=== PATIENT | female | born 1950 | race Caucasian/White ===

== ENCOUNTER 2016-04-26 11:05 | Inpatient (IN) | payer MEDICARE, OTHER ==
[~2016-04-26] VITALS: Ht 162.6 cm; Wt 56.0 kg
[2016-04-26] MEDS ORDERED: SODIUM CHLORIDE FLUSH 10 ML SYR IV PRN (12:50)
[2016-04-26] MEDS ORDERED: SODIUM CHLORIDE FLUSH 3 ML SYR IV PRN (12:50)
[2016-04-26] MEDS ORDERED: ALBUTEROL/IPRATROPIUM 3MG-0.5MG/3ML (DUONEB) NEB VIAL INH ONE ×2 (12:50→20:11)
[2016-04-26] MEDS ORDERED: ACETAMINOPHEN 500 MG TAB (TYLENOL) PO STA (13:09)
[2016-04-26 13:21] LABS: MEAN CORPUSCULAR HEMOGLOBIN 30.1 PG (26.0-34.0); MEAN CORPUSCULAR VOLUME 85 FL (80-100); MEAN PLATELET VOLUME 9.6 FL (6.0-9.5); PLATELET COUNT 270 10^3uL (150-450); WHITE BLOOD COUNT 13.57 10^3uL (4.0-11.0)
[2016-04-26 13:23] LABS: MEAN CORPUSCULAR HGB CONC 35.5 g/dL (31.0-37.0)
[2016-04-26 13:30] LABS: BAND NEUTROPHILS % 13 % (0-6); EOSINOPHILS % 0 % (0-4); LYMPHOCYTES # 1.5 #; MONOCYTES # 0.8 #; MONOCYTES % 6 % (3-11); RBC MORPH NORMAL (NORMAL); SEGMENTED NEUTROPHILS % 70 % (51-67); TOTAL CELLS COUNTED 100
[2016-04-26 13:34] LABS: ANION GAP 15.4 MEQ/L (3-15); CALCULATED IONIZED CALCIUM 3.8 mg/dL (3.8-4.6)
[2016-04-26] MEDS ORDERED: methylPREDNISolone 125 MG (Solu-MEDROL) VIAL IV STA (14:26)
[2016-04-26] MEDS ORDERED: ALBUTEROL 0.083% NEB SOLUTION 2.5 MG/3 ML VIAL INH STA (14:26)
[2016-04-26] MEDS: SODIUM CHLORIDE FLUSH 10 ML SYR IV PRN (15:32)
[2016-04-26 15:52] LABS: INFLUENZA VIRUS TYPE A ANTIBOD Negative (NEGATIVE); INFLUENZA VIRUS TYPE B ANTIBOD Negative (NEGATIVE)
[2016-04-26] MEDS ORDERED: ACETAMINOPHEN 325 MG TAB (TYLENOL) PO PRN (17:30)
[2016-04-26] MEDS ORDERED: ONDANSETRON 4 MG (ZOFRAN) ORAL DISSOLVE TAB PO PRN (17:30)
[2016-04-26] MEDS ORDERED: CALCIUM CARBONATE CHEWABLE 300 MG (TUMS) TABLET PO PRN (17:30)
[2016-04-26] MEDS ORDERED: MAG HYDROX/AL HYDROX/SIMETH 200-200-20/5 ML (MAG-AL PLUS) 30 ML UDC PO PRN (17:30)
[2016-04-26] MEDS ORDERED: DOCUSATE SODIUM 100 MG (COLACE) CAP PO PRN (17:30)
[2016-04-26] MEDS ORDERED: MAGNESIUM HYDROXIDE 80MG/ML (MILK OF MAGNESIA) 30 ML UDC PO PRN (17:30)
[2016-04-26] MEDS ORDERED: PROMETHAZINE HCL INJ 12.5 MG in SODIUM CHLORIDE 25 ML IV PRN (17:30)
[2016-04-26] MEDS ORDERED: ALBUTEROL 0.083% NEB SOLUTION 2.5 MG/3 ML VIAL INH PRN (17:30)
[2016-04-26] MEDS ORDERED: POLYETHYLENE GLYCOL 17 GM (MIRALAX) PACKET PO PRN (17:30)
[2016-04-26 17:35] VITALS: BP 127/77
--- NOTE | 2016-04-26 17:35 | NUR ---
Patient arrives on floor to room 305 via ED cart. Ambulates to weight chair then bed with standby assist. Respirations even and labored on 2L of 02. Saturation at this time 93%. See admission for full assessment.
[2016-04-26] MEDS ORDERED: GABAPENTIN 300 MG (NEURONTIN) CAP PO PRN (17:40)
--- NOTE | 2016-04-26 17:53 | NUR ---
MED REC COMPLETE--current med list obtained from patient report (written list), external med history application, and retail pharmacy ([facility]).
[2016-04-26] MEDS: cefTRIAXone SODIUM 1,000 MG in SODIUM CHLORIDE 50 ML IV SCH (17:58)
[2016-04-26 18:11] VITALS: BP 127/77
[2016-04-26] MEDS: AZITHROMYCIN VIAL 500 MG in SODIUM CHLORIDE 250 ML IV SCH (18:19)
[2016-04-26] MEDS: NICOTINE 21 MG (NICODERM) PATCH TD SCH (18:19)
[2016-04-26 19:29] VITALS: BP 125/77
[2016-04-26] MEDS: guaiFENesin ER 600 MG (MUCINEX) TAB PO SCH (20:27)
[2016-04-26] MEDS: methylPREDNISolone 125 MG (Solu-MEDROL) VIAL IV SCH (20:27)
[2016-04-26] MEDS: BUDESONIDE NEBS 0.5 MG/2ML (PULMICORT) AMP INH SCH (20:50)
[2016-04-26] MEDS: ALBUTEROL/IPRATROPIUM 3MG-0.5MG/3ML (DUONEB) NEB VIAL INH SCH (20:50)
[2016-04-26 21:04] LABS: BILIRUBIN,URINE Negative (Negative); CLARITY,URINE Clear; COLOR,URINE Yellow; GLUCOSE, URINE (UA) 2+ (Negative); LEUKOCYTE ESTERASE ,URINE Negative (Negative); UROBILINOGEN,URINE 0.2 mg/dL (0.2-1.0)
[2016-04-26] MEDS: QUEtiapine 25 MG (SEROquel) TAB IMMEDIATE RELEASE PO SCH (21:16)
[2016-04-26] MEDS: BACLOFEN 10 MG (LIORESAL) TAB PO SCH (21:16)
[2016-04-26 21:45] LABS: URINE CENTRIFUGED VOLUME 12 mL
--- NOTE | 2016-04-26 22:53 | NUR ---
Pt states that she has "some acid reflux." Offered pt PRN tums, but pt adamant that her meds for reflux be ordered. "I take one at bedtime and one in the morning. I brought my med list; please look at that." Med list reviewed and Dr Marc notified of pt request. Pantoprazole 40mg PO daily and Famotidine 20mg PO HS ordered.
[2016-04-26] MEDS: FAMOTIDINE 20 MG (PEPCID) TABLET PO SCH (22:58)
[2016-04-26] MEDS: IBUPROFEN 400 MG (MOTRIN) TABLET PO PRN (23:05)
[2016-04-27 00:16] VITALS: BP 105/58
[2016-04-27 03:49] VITALS: BP 116/60
[2016-04-27] MEDS: PANTOPRAZOLE 40 MG (PROTONIX) TAB PO SCH (06:01)
[2016-04-27] MEDS: IBUPROFEN 400 MG (MOTRIN) TABLET PO PRN (06:02)
--- NOTE | 2016-04-27 06:07 | NUR ---
Pt rests in short intervals throughout the night. C/o chronic back/neck pain this morning. PRN motrin given. SL intact. Pt cont on 3L oxygen per nc. Resp even, slightly labored.
[2016-04-27 06:22] LABS: MEAN CORPUSCULAR HEMOGLOBIN 29.8 PG (26.0-34.0); MEAN CORPUSCULAR VOLUME 85 FL (80-100); MEAN PLATELET VOLUME 10.1 FL (6.0-9.5); PLATELET COUNT 298 10^3uL (150-450); WHITE BLOOD COUNT 14.71 10^3uL (4.0-11.0)
[2016-04-27 06:32] LABS: ALBUMIN 3.8 g/dL (3.4-5.0); ANION GAP 16.7 MEQ/L (3-15); PHOSPHORUS 3.5 mg/dL (2.4-4.9)
[2016-04-27 06:43] LABS: BAND NEUTROPHILS % 5 % (0-6); EOSINOPHILS % 0 % (0-4); LYMPHOCYTES # 0.9 #; MONOCYTES # 0.6 #; MONOCYTES % 4 % (3-11); RBC MORPH NORMAL (NORMAL); SEGMENTED NEUTROPHILS % 83 % (51-67); TOTAL CELLS COUNTED 100
[2016-04-27 07:45] VITALS: BP 134/89
[2016-04-27] MEDS: ALBUTEROL/IPRATROPIUM 3MG-0.5MG/3ML (DUONEB) NEB VIAL INH SCH ×4 (07:46→23:00)
[2016-04-27] MEDS: BUDESONIDE NEBS 0.5 MG/2ML (PULMICORT) AMP INH SCH ×2 (07:46→20:06)
--- NOTE | 2016-04-27 07:49 | NUR ---
Pt found lying in bed on 3 l/min NC, SPO2 93%, HR 85, RR 18 and non labored. BS coarse throughout with fine wheezes in left upper lobe before Duoneb and Pulmicort via SVN. Coarse post Tx with increased air movement. Acapella X5. Pt has a loose NPC
[2016-04-27] MEDS: MULTIVITAMIN W/MINERALS (THERAGRAN M) TABLET PO SCH (08:23)
[2016-04-27] MEDS: methylPREDNISolone 125 MG (Solu-MEDROL) VIAL IV SCH ×2 (08:23→20:52)
[2016-04-27] MEDS: MONTELUKAST 10 MG (SINGULAIR) TAB PO SCH (08:24)
[2016-04-27] MEDS: FLUTICASONE NASAL 50 MCG/SPRAY (FLONASE) 16 GM BTL NS SCH (08:24)
[2016-04-27] MEDS: amLODIPine 5 MG (NORVASC) TAB PO SCH (08:24)
[2016-04-27] MEDS: BACLOFEN 10 MG (LIORESAL) TAB PO SCH ×5 (08:25→23:35)
[2016-04-27] MEDS: ATORVASTATIN 10 MG (LIPITOR) TABLET PO SCH (08:25)
[2016-04-27] MEDS: lisINopril 20 MG (PRINIVIL) TABLET PO SCH (08:25)
[2016-04-27] MEDS: ESTROGENS CONJ 0.3 MG PO SCH (08:25)
[2016-04-27] MEDS: guaiFENesin ER 600 MG (MUCINEX) TAB PO SCH ×2 (08:25→20:52)
[2016-04-27] MEDS: ENOXAPARIN 40 MG/0.4 ML (LOVENOX) SYR SC SCH (08:26)
[2016-04-27] MEDS: SODIUM CHLORIDE FLUSH 10 ML SYR IV PRN (08:42)
[2016-04-27] MEDS ORDERED: LIDOCAINE (LIDODERM) 5% PATCH TOP SCH (11:00)
[2016-04-27] MEDS: MENTHOL TOP PRN (11:25)
[2016-04-27] MEDS: METHYL SALICYLATE TOP PRN (11:25)
[2016-04-27] MEDS: CARBOXYMETHYLCELLULOSE 1% (CELLUVISC) OPHTHALMIC DROPS OU PRN (11:25)
--- NOTE | 2016-04-27 11:36 | NUR ---
Lido patches placed per pt request along L side of pt's back. Bengay placed along pt's lower back and R shoulder.
[2016-04-27] MEDS ORDERED: SODIUM CHLORIDE FLUSH 3 ML SYR IV PRN (12:50)
--- NOTE | 2016-04-27 13:06 | NUR ---
Pt resting in chair at this time. Skin warm, dry, intact. Resprs nonlabored, even on 3L NC. Pt endorses chronic back pain, denies need for PRN medications. States Lido patches helped. at bedside. SL intact, reinforced with tape. Pt denies needs.
--- NOTE | 2016-04-27 14:12 | NUR ---
Pt found sitting in her chair on 4 l/min NC, SPO2 98%, HR 86, RR 16 and non labored, BS clear bilateral upper lobes with fine wheezes bilateral lower lobes before Duoneb via SVN. Pt has a productive cough. Increased wheeze bilateral bases post Tx. Pt continues Acapella on her own.
--- NOTE | 2016-04-27 14:20 | NUR ---
Received report from Majo Vergara RN. Assumed patient care.
--- NOTE | 2016-04-27 15:35 | NUR ---
Patient is asking if her nicotine patch can be replaced early.
[2016-04-27 15:51] VITALS: BP 117/65
[2016-04-27] MEDS: cefTRIAXone SODIUM 1,000 MG in SODIUM CHLORIDE 50 ML IV SCH (17:44)
[2016-04-27] MEDS: NICOTINE 21 MG (NICODERM) PATCH TD SCH (17:45)
[2016-04-27] MEDS: AZITHROMYCIN VIAL 500 MG in SODIUM CHLORIDE 250 ML IV SCH (17:56)
[2016-04-27] MEDS ORDERED: SODIUM CHLORIDE 50 ML IV ONE (17:59)
[2016-04-27] MEDS: PATCH REMOVAL TOP SCH (19:05)
[2016-04-27] MEDS: FAMOTIDINE 20 MG (PEPCID) TABLET PO SCH (20:51)
[2016-04-27] MEDS: CARBOXYMETHYLCELLULOSE 1% (CELLUVISC) OPHTHALMIC DROPS OU SCH (20:52)
[2016-04-27] MEDS: QUEtiapine 25 MG (SEROquel) TAB IMMEDIATE RELEASE PO SCH (23:35)
[2016-04-27 23:40] VITALS: BP 164/90
[2016-04-28] MEDS: ALBUTEROL/IPRATROPIUM 3MG-0.5MG/3ML (DUONEB) NEB VIAL INH SCH ×4 (05:25→20:55)
[2016-04-28] MEDS: BUDESONIDE NEBS 0.5 MG/2ML (PULMICORT) AMP INH SCH ×2 (05:25→20:55)
[2016-04-28] MEDS: PANTOPRAZOLE 40 MG (PROTONIX) TAB PO SCH (06:24)
[2016-04-28 06:57] LABS: MEAN CORPUSCULAR HEMOGLOBIN 29.9 PG (26.0-34.0); MEAN CORPUSCULAR VOLUME 84 FL (80-100); MEAN PLATELET VOLUME 10.1 FL (6.0-9.5); PLATELET COUNT 314 10^3uL (150-450); WHITE BLOOD COUNT 16.94 10^3uL (4.0-11.0)
[2016-04-28 07:01] LABS: BAND NEUTROPHILS % 5 % (0-6); MEAN CORPUSCULAR HGB CONC 35.8 g/dL (31.0-37.0); SEGMENTED NEUTROPHILS % 82 % (51-67)
[2016-04-28 07:02] LABS: EOSINOPHILS % 0 % (0-4); LYMPHOCYTES # 1.2 #; MONOCYTES % 6 % (3-11); RBC MORPH NORMAL (NORMAL); TOTAL CELLS COUNTED 100
[2016-04-28 07:34] VITALS: BP 127/75
[2016-04-28] MEDS: predniSONE 20 MG (DELTASONE) TABLET PO SCH (07:48)
[2016-04-28] MEDS: MULTIVITAMIN W/MINERALS (THERAGRAN M) TABLET PO SCH (07:48)
[2016-04-28] MEDS ORDERED: NS FLUSH 3 ML PRN IV (07:57)
[2016-04-28] MEDS ORDERED: NS FLUSH 10 ML PRN IV (07:57)
[2016-04-28] MEDS: ATORVASTATIN 10 MG (LIPITOR) TABLET PO SCH (08:02)
[2016-04-28] MEDS: amLODIPine 5 MG (NORVASC) TAB PO SCH (08:02)
[2016-04-28] MEDS: FLUTICASONE NASAL 50 MCG/SPRAY (FLONASE) 16 GM BTL NS SCH (08:02)
[2016-04-28] MEDS: guaiFENesin ER 600 MG (MUCINEX) TAB PO SCH ×2 (08:02→20:27)
[2016-04-28] MEDS: ESTROGENS CONJ 0.3 MG PO SCH (08:03)
[2016-04-28] MEDS: MONTELUKAST 10 MG (SINGULAIR) TAB PO SCH (08:03)
[2016-04-28] MEDS: ENOXAPARIN 40 MG/0.4 ML (LOVENOX) SYR SC SCH (08:04)
[2016-04-28] MEDS: BACLOFEN 10 MG (LIORESAL) TAB PO SCH ×4 (08:04→20:27)
[2016-04-28] MEDS: lisINopril 20 MG (PRINIVIL) TABLET PO SCH (08:04)
--- NOTE | 2016-04-28 08:13 | NUR ---
Pt alert and oriented x4, speech clear, pleasant. Transfers to chair with assist of personal cane. Lungs with scattered expiratory wheezes heard, pt with non-productive cough, oxygen at 2L/NC. Abdomen soft, bowel sounds present in all sy. Takes AM meds without difficulty. Rates discomfort at 3/10. Call light in reach. Will call for needs.
--- NOTE | 2016-04-28 08:25 | NUR ---
NUTRITION ASSESSMENT Level 1 Patient: Carolyne Serrano Age/Sex: 65/F Date Screened: 04-28-16 Weight: 124.5#/56.6 kg Height: 64 inches Primary Diagnosis: SIRS/sepsis with pneumonia Diet Order: regular Relevant labs: N/A Food allergies: N Nutrition Assessment Criteria Age over 80: N Body Mass Index (BMI) under 19: N Admission Screening Indicates Risk? N Moderate/High Risk Diagnosis: 3 points TPN or PPN: N NPO or clear liquid diet: N Serum Glucose <70 or >180: N/A Hgb A1c >6.7: N/A Total: 3 points Risk Screen: __ Patient at low nutritional risk based on available data; reevaluate in 5-7 days _X_ Patient at moderate nutritional risk based on available data; reevaluate in 3-5 days __ Patient at high nutritional risk; complete Nutrition Assessment within 48 hours of admission. Comments: Weight stable per pt. Appetite improving since admission, now eating mostly 100%. Will reassess as documented above.
[2016-04-28] MEDS: NS FLUSH 3 ML DAILY IV SCH (09:00)
--- NOTE | 2016-04-28 09:00 | NUR ---
Dr. Hidalgo at bedside.
--- NOTE | 2016-04-28 09:10 | NUR ---
Pt working with OT.
--- NOTE | 2016-04-28 10:47 | NUR ---
Pt states she was able to walk to tub room, able to give herself bath, get out on her own with SENIOR MARKETING SPECIALIST standby for safety. States able to manage portable oxygen tank on way back to room. Pt pleased she was able to care for herself and is improving.
--- NOTE | 2016-04-28 10:57 | NUR ---
Pt found sitting in her chair on 1.5 l/min NC, HR 71, RR 16 and non labored with fine rhonchi before and after Duoneb via SVN which was tolerated well. Acapella x 5 post Tx. O2 titrated to 1 l/min NC, Humidity added for Pt comfort.
--- NOTE | 2016-04-28 11:40 | NUR ---
Pt ambulated halls with Delavan S. PT- ambulated 200ft, rest break, 100ft, rest break then another 100 ft before going back to room. Remained on 2L nc. Pt did not c/o SOA while ambulating.
--- NOTE | 2016-04-28 14:45 | NUR ---
Pt found sitting in her chair, SPO2 92% on 1 l/min NC, HR 69, RR 16-18 and non labored. BS coarse with defuse wheezes throughout all lung sy before Duoneb via SVN which was tolerated well. Patient has a loose NPC. BS unchanged post Tx.
[2016-04-28 15:18] VITALS: BP 115/69
[2016-04-28] MEDS: cefTRIAXone SODIUM 1,000 MG in SODIUM CHLORIDE 50 ML IV SCH (17:15)
[2016-04-28] MEDS: PATCH REMOVAL TOP SCH (17:15)
[2016-04-28] MEDS: NICOTINE 21 MG (NICODERM) PATCH TD SCH (17:16)
[2016-04-28] MEDS: AZITHROMYCIN VIAL 500 MG in SODIUM CHLORIDE 250 ML IV SCH (17:52)
[2016-04-28] MEDS: CARBOXYMETHYLCELLULOSE 1% (CELLUVISC) OPHTHALMIC DROPS OU SCH (20:27)
[2016-04-28] MEDS: QUEtiapine 25 MG (SEROquel) TAB IMMEDIATE RELEASE PO SCH (20:27)
[2016-04-28] MEDS: FAMOTIDINE 20 MG (PEPCID) TABLET PO SCH (20:28)
[2016-04-28] MEDS: LIDOCAINE (LIDODERM) 5% PATCH TOP SCH (20:28)
--- NOTE | 2016-04-28 20:30 | NUR ---
Pt. takes PO meds without difficulty; very conversational; many requests met by this nurse. Humidified O2 at 1.5 L ; resp are labored with activity; occasional harsh cough noted. Pt. watching tv; call light and H2O within reach.
[2016-04-28] MEDS: IBUPROFEN 400 MG (MOTRIN) TABLET PO PRN (22:32)
--- NOTE | 2016-04-28 22:35 | NUR ---
Motrin PO given for pain rated "6"-"everywhere, but especially head; back; neck". Extensive back rub with lotion given per request by this nurse.
[2016-04-28] MEDS: MENTHOL TOP PRN (22:57)
[2016-04-28] MEDS: METHYL SALICYLATE TOP PRN (22:57)
--- NOTE | 2016-04-28 23:00 | NUR ---
Karin applied per pt. direction. Pt. also asks for a 'hot pack'. KPad is ordered; equipment not available currently; ok'd through Embedded Engineer, Estefany/RN to utilize other methods--hot towel in plastic bag covered by another towel. 'Heat pack' applied to back; pt. resting on right side; H2O and call light within reach.
[2016-04-29 00:32] VITALS: BP 126/65
--- NOTE | 2016-04-29 01:14 | NUR ---
Pt. resting quietly; appears to be in no distress; call light and H2O within reach.
[2016-04-29 06:14] LABS: MEAN CORPUSCULAR HEMOGLOBIN 29.7 PG (26.0-34.0); MEAN CORPUSCULAR HGB CONC 35.4 g/dL (31.0-37.0); MEAN CORPUSCULAR VOLUME 84 FL (80-100); MEAN PLATELET VOLUME 9.9 FL (6.0-9.5); PLATELET COUNT 317 10^3uL (150-450); WHITE BLOOD COUNT 12.91 10^3uL (4.0-11.0)
[2016-04-29 06:56] LABS: ALBUMIN 2.9 g/dL (3.4-5.0); ANION GAP 10.2 MEQ/L (3-15); PHOSPHORUS 3.6 mg/dL (2.4-4.9)
[2016-04-29 07:10] LABS: BAND NEUTROPHILS % 7 % (0-6); LYMPHOCYTES # 2.2 #; MONOCYTES # 0.7 #; MONOCYTES % 6 % (3-11); SEGMENTED NEUTROPHILS % 70 % (51-67); TOTAL CELLS COUNTED 100
[2016-04-29 07:11] LABS: EOSINOPHILS % 0 % (0-4); RBC MORPH NORMAL (NORMAL)
[2016-04-29] MEDS: BUDESONIDE NEBS 0.5 MG/2ML (PULMICORT) AMP INH SCH ×2 (07:19→20:23)
[2016-04-29] MEDS: ALBUTEROL/IPRATROPIUM 3MG-0.5MG/3ML (DUONEB) NEB VIAL INH SCH ×4 (07:19→20:23)
[2016-04-29] MEDS: PANTOPRAZOLE 40 MG (PROTONIX) TAB PO SCH (07:43)
[2016-04-29 08:00] VITALS: BP 110/55
[2016-04-29] MEDS: lisINopril 20 MG (PRINIVIL) TABLET PO SCH (08:56)
[2016-04-29] MEDS: MULTIVITAMIN W/MINERALS (THERAGRAN M) TABLET PO SCH (08:56)
[2016-04-29] MEDS: guaiFENesin ER 600 MG (MUCINEX) TAB PO SCH ×2 (08:56→21:59)
[2016-04-29] MEDS: predniSONE 20 MG (DELTASONE) TABLET PO SCH (08:56)
[2016-04-29] MEDS: ATORVASTATIN 10 MG (LIPITOR) TABLET PO SCH (08:56)
[2016-04-29] MEDS: BACLOFEN 10 MG (LIORESAL) TAB PO SCH ×4 (08:56→21:56)
[2016-04-29] MEDS: amLODIPine 5 MG (NORVASC) TAB PO SCH (08:56)
[2016-04-29] MEDS: MONTELUKAST 10 MG (SINGULAIR) TAB PO SCH (08:56)
[2016-04-29] MEDS: ESTROGENS CONJ 0.3 MG PO SCH (08:56)
[2016-04-29] MEDS: NICOTINE 21 MG (NICODERM) PATCH TD SCH (08:57)
[2016-04-29] MEDS: NS FLUSH 3 ML DAILY IV SCH (08:57)
[2016-04-29] MEDS: ENOXAPARIN 40 MG/0.4 ML (LOVENOX) SYR SC SCH (08:57)
--- NOTE | 2016-04-29 09:04 | NUR ---
Pt sitting in recliner, alert & oriented, speech clear. Lungs with expiratory wheezing in all sy, dry non-productive cough, on 1L/NC, pt complains of "my nose is really dry". Takes AM meds w/o difficulty. Call light in reach. Will call for needs.
[2016-04-29] MEDS ORDERED: POTASSIUM CHLORIDE ER 20 MEQ TABLET PO ONE (09:05)
[2016-04-29] MEDS: IBUPROFEN 400 MG (MOTRIN) TABLET PO PRN (10:25)
--- NOTE | 2016-04-29 10:30 | NUR ---
Pt very upset and tearful regarding possibility of needing to stay in hospital past today, states she does not want to go home with oxygen, and is currently on 1L/NC in hospital. Ibuprofen 400mg given for complaint of headache, rates 5/10. Pt was then found up in room without oxygen on, and wanting to go for walk by herself. Informed pt need to monitor oxygen levels on portable machine during activity to make sure pt remains safe. Pt then reapplies oxygen and sits back down. SaO2 87%, then rises to 91% on 1L/NC.
[2016-04-29] MEDS: FLUTICASONE NASAL 50 MCG/SPRAY (FLONASE) 16 GM BTL NS SCH (10:56)
--- NOTE | 2016-04-29 11:17 | NUR ---
Pt resting in chair, pt is 94% on 1L, took pt off o2 and will recheck spo2.
[2016-04-29 13:11] LABS: IRON 23 ug/dL (50-170); UNBOUND IRON CONTENT 196 ug/dl (126-382)
--- NOTE | 2016-04-29 14:50 | NUR ---
Pt sitting in recliner, family at bedside. alert & oriented, denies needs. Reports given to Valarie Flores RN.
[2016-04-29 15:00] VITALS: BP 131/75
[2016-04-29] MEDS: PATCH REMOVAL TOP SCH (16:46)
[2016-04-29] MEDS: cefTRIAXone SODIUM 1,000 MG in SODIUM CHLORIDE 50 ML IV SCH (17:29)
--- NOTE | 2016-04-29 18:10 | NUR ---
Pt sitting upright in chair, eating supper. Remains on 1L nc. New IV started in LFA- 22g. Rocephin infused without difficulty. remains at bedside, they are watching tv. Pt requests to walk in halls after supper.
[2016-04-29] MEDS: CARBOXYMETHYLCELLULOSE 1% (CELLUVISC) OPHTHALMIC DROPS OU SCH (21:00)
[2016-04-29] MEDS: QUEtiapine 25 MG (SEROquel) TAB IMMEDIATE RELEASE PO SCH (21:56)
[2016-04-29] MEDS: LIDOCAINE (LIDODERM) 5% PATCH TOP SCH (23:00)
--- NOTE | 2016-04-29 23:00 | NUR ---
Back rub completed and Lidoderm patches applied by Vanita/JOVANA. Pt. asked for certain meds be given at specific times; readjusted or waited per request. Warm blanket provided; pt. positioned for comfort.
[2016-04-30 00:14] VITALS: BP 125/72
[2016-04-30] MEDS: IBUPROFEN 400 MG (MOTRIN) TABLET PO PRN (03:45)
[2016-04-30] MEDS: CARBOXYMETHYLCELLULOSE 1% (CELLUVISC) OPHTHALMIC DROPS OU PRN (03:50)
--- NOTE | 2016-04-30 03:50 | NUR ---
0345-Motrin 400 mg PO given for pain. 0350- Refresh Celluvisc drops given for dry eyes. Additional needs met by this nurse and OBGYN NURSE. Call light and H2O within reach.
[2016-04-30] MEDS: PANTOPRAZOLE 40 MG (PROTONIX) TAB PO SCH (06:33)
--- NOTE | 2016-04-30 06:35 | NUR ---
Pt. takes PO med; states she slept "off and on" last night; O2 at 1L via NC; occasional harsh cough noted; call light and H2O within reach.
[2016-04-30 07:31] LABS: MEAN CORPUSCULAR VOLUME 84 FL (80-100); MEAN PLATELET VOLUME 9.5 FL (6.0-9.5); PLATELET COUNT 407 10^3uL (150-450); WHITE BLOOD COUNT 11.47 10^3uL (4.0-11.0)
[2016-04-30 07:36] LABS: MEAN CORPUSCULAR HGB CONC 35.6 g/dL (31.0-37.0)
[2016-04-30] MEDS: ALBUTEROL/IPRATROPIUM 3MG-0.5MG/3ML (DUONEB) NEB VIAL INH SCH ×2 (07:45→11:52)
[2016-04-30] MEDS: BUDESONIDE NEBS 0.5 MG/2ML (PULMICORT) AMP INH SCH (07:45)
[2016-04-30 07:49] LABS: ALBUMIN 3.7 g/dL (3.4-5.0); PHOSPHORUS 3.8 mg/dL (2.4-4.9)
[2016-04-30 07:55] LABS: BAND NEUTROPHILS % 0 % (0-6); EOSINOPHILS % 0 % (0-4); LYMPHOCYTES # 2.7 #; MONOCYTES % 9 % (3-11)
[2016-04-30 07:56] LABS: RBC MORPH NORMAL (NORMAL); SEGMENTED NEUTROPHILS % 62 % (51-67); TOTAL CELLS COUNTED 100
[2016-04-30 08:09] VITALS: BP 153/89
[2016-04-30] MEDS ORDERED: FERROUS SULFATE 325 MG (IRON) TABLET PO SCH (09:25)
[2016-04-30] MEDS ORDERED: POTASSIUM CHLORIDE ER 20 MEQ TABLET PO ONE (09:31)
[2016-04-30] MEDS: predniSONE 20 MG (DELTASONE) TABLET PO SCH (09:58)
[2016-04-30] MEDS: MULTIVITAMIN W/MINERALS (THERAGRAN M) TABLET PO SCH (09:58)
[2016-04-30] MEDS: BACLOFEN 10 MG (LIORESAL) TAB PO SCH ×2 (09:59→12:19)
[2016-04-30] MEDS: NS FLUSH 3 ML DAILY IV SCH (09:59)
[2016-04-30] MEDS: ATORVASTATIN 10 MG (LIPITOR) TABLET PO SCH (10:00)
[2016-04-30] MEDS: guaiFENesin ER 600 MG (MUCINEX) TAB PO SCH (10:00)
[2016-04-30] MEDS: ESTROGENS CONJ 0.3 MG PO SCH (10:01)
[2016-04-30] MEDS: MONTELUKAST 10 MG (SINGULAIR) TAB PO SCH (10:01)
[2016-04-30] MEDS: ENOXAPARIN 40 MG/0.4 ML (LOVENOX) SYR SC SCH (10:01)
[2016-04-30] MEDS: amLODIPine 5 MG (NORVASC) TAB PO SCH (10:01)
[2016-04-30] MEDS: lisINopril 20 MG (PRINIVIL) TABLET PO SCH (10:01)
[2016-04-30] MEDS: NICOTINE 21 MG (NICODERM) PATCH TD SCH (10:03)
[2016-04-30] MEDS ORDERED: SODIUM CHLORIDE 100 ML ONE (12:14)
[2016-04-30] MEDS: FLUTICASONE NASAL 50 MCG/SPRAY (FLONASE) 16 GM BTL NS SCH (12:18)
[2016-04-30] MEDS: cefTRIAXone SODIUM 1,000 MG in SODIUM CHLORIDE 50 ML IV SCH (12:21)
--- NOTE | 2016-04-30 13:35 | NUR ---
Patient has discharge order on the chart from Dr Hidalgo. IV access is removed from Left rorearm without difficulty. Telfa bap and tape used as bandage to site.
--- NOTE | 2016-04-30 14:00 | NUR ---
Patient is discharged to home per physician order. Patient has ordered O2 at 2 liters per nasal cannula on. Spouse is at her side.
== END 2016-04-30 14:00 | disposition home or self-care (01) | DRG 871 ==
LOC: EDUNIT# 11:05 → ED 11:08 → MED/SURG 16:59
PROVIDERS: ADMIT Internal Medicine; ATTEND Internal Medicine
DX: A41.9 Sepsis, unspecified organism (principal); J96.01 Acute respiratory failure with hypoxia; J18.9 Pneumonia, unspecified organism; J44.0 Chronic obstructive pulmonary disease with (acute) lower respiratory infection; J44.1 Chronic obstructive pulmonary disease with (acute) exacerbation; I10 Essential (primary) hypertension; G89.29 Other chronic pain; D50.9 Iron deficiency anemia, unspecified; E78.5 Hyperlipidemia, unspecified; K21.9 Gastro-esophageal reflux disease without esophagitis; F17.200 Nicotine dependence, unspecified, uncomplicated
CPT/HCPCS: 36415; 71020; 80053; 80069; 81003; 81015; 83540; 83550; 83735; 85025; 86140; 87040; 87070; 87205; 87502; 94620; 94640; 94669; 94760; 96374; 99285